=== PATIENT | male | born 1995 | race Caucasian/White ===

== ENCOUNTER 2020-02-20 07:40 | Emergency (ER) | payer BC ==
[~2020-02-20] VITALS: Wt 172.3 kg
[2020-02-20 08:36] LABS: EOS # 0.1 (0.04-0.40); EOS % 1.2 % (0.0-4.0); HEMATOCRIT 46.6 % (42.0-52.0); HEMOGLOBIN 15.8 g/dL (13.5-18.0); LYMPH# 1.8 (1.50-4.00); MEAN CELL VOLUME 82 fl (78-100); MEAN CORPUSCULAR HEMOGLOBIN 28 pg (27-31); MEAN CORPUSCULAR HGB CONC 34 g/dL (33-37); MEAN PLATELET VOLUME 9.3 fl (7.4-10.4); MONO # 0.7 (0.20-0.80); NEU # 6.3 (1.40-6.50); PLATELET COUNT 214 K/mm3 (130-400); RED CELL DISTRIBUTION WIDTH 13.1 % (11.5-14.5); WHITE BLOOD COUNT 8.9 K/mm3 (4.8-10.8)
[2020-02-20 08:39] LABS: ALBUMIN 4.5 g/dL (3.5-5.0)
[2020-02-20 08:40] LABS: POTASSIUM 4.1 mmol/L (3.5-5.1); SODIUM 139 mmol/L (136-145)
[2020-02-20 08:41] LABS: CALCIUM 9.2 mg/dL (8.3-10.5)
[2020-02-20 08:42] LABS: GLUCOSE 119 mg/dL (75-110); TOTAL PROTEIN 7.2 g/dL (6.4-8.3)
[2020-02-20 08:43] LABS: CARBON DIOXIDE 24 mmol/L (22-29)
[2020-02-20 08:44] LABS: TOTAL BILIRUBIN 0.8 mg/dL (0.2-1.2)
[2020-02-20 08:47] LABS: AST-SGOT 32 U/L (5-34)
[2020-02-20 08:49] LABS: ALT/SGPT 67 U/L (0-55); LIPASE 25 U/L (8-78)
[2020-02-20 09:03] LABS: TROPONIN-I < 0.03 ng/mL (<0.030)
[2020-02-20 09:26] LABS: D-DIMER 0.1 mg/L FEU (0.15-0.50)
[2020-02-20] MEDS ORDERED: PROTONIX20 M1 PO (09:55)
[2020-02-20 10:07] VITALS: BP 164/91
== END 2020-02-20 10:09 | disposition home or self-care (01) ==
LOC: ED 07:40
PROVIDERS: Nurse Practitioner Primary Care
DX: K21.9 Gastro-esophageal reflux disease without esophagitis (principal); M79.602 Pain in left arm